=== PATIENT | female | born 1975 | race Caucasian/White ===

== ENCOUNTER 2020-04-30 23:42 | Emergency (ER) | payer OTHER, SELFPAY ==
[2020-04-30 23:47] VITALS: BP 185/99; PULSE 114; RESP 22; TEMP 36.6; O2SAT 99
--- NOTE | 2020-04-30 23:57 | DI.CT.S_ITS ---
PROCEDURE: CT CERVICAL SPINE WO CON INDICATIONS: Fall/injury TECHNIQUE: Noncontrast 3 mm thick sections acquired from the skull base to the T4 level. Sagittal and coronal reformats were then constructed. For radiation dose reduction, the following was used: automated exposure control, adjustment of mA and/or kV according to patient size. COMPARISON: None. FINDINGS: Image quality: Limited by patient motion artifact. Spine degenerative disc disease and facet arthropathy. Bones: No fractures or dislocations. Visualized superior ribs are intact. Soft tissues: Prevertebral soft tissues are normal in thickness. No paravertebral hematomas. No apical pneumothoraces. Probable sebaceous cyst noted in left paramedian posterior left lower neck soft tissues. IMPRESSION: No fracture. No acute osseous lesion. If symptoms and/or clinical suspicion for pathology persists, evaluation with MRI may be helpful for further assessment. Dictated by: Saima Hull MD, PhD on 05/01/2020 at 7:35 Approved by: Saima Hull MD, PhD on 05/01/2020 at 7:38
--- NOTE | 2020-04-30 23:57 | DI.CT.S_ITS ---
PROCEDURE: CT HEAD/BRAIN WO CON INDICATIONS: Fall/injury TECHNIQUE: Noncontrast 4.5 mm thick angled axial sections acquired from the foramen magnum to the vertex, with coronal and sagittal reformats. For radiation dose reduction, the following was used: automated exposure control, adjustment of mA and/or kV according to patient size. COMPARISON: None. FINDINGS: Image quality: Excellent. CSF spaces: Basal cisterns are patent. No extra-axial fluid collections. Ventricles are normal in size and shape. Brain: No midline shift. No intracranial masses or hemorrhage. Ibrahim-white matter interface is normal. Skull and face: Calvarium is intact, without suspicious lesions. Mildly displaced bilateral nasal bone fractures. Sinuses: Visualized sinuses and mastoids are clear. IMPRESSION: No acute intracranial disease process. Dictated by: Saima Hull MD, PhD on 05/01/2020 at 7:23 Approved by: Saima Hull MD, PhD on 05/01/2020 at 7:25
--- NOTE | 2020-04-30 23:57 | DI.CT.S_ITS ---
PROCEDURE: CT FACIAL BONES WO CON INDICATIONS: Fall/injury TECHNIQUE: Noncontrast 2.5 mm thick axial images acquired from the mandible through the frontal sinuses, with coronal and sagittal reformatting. For radiation dose reduction, the following was used: automated exposure control, adjustment of mA and/or kV according to patient size. COMPARISON: None. FINDINGS: Image quality: Excellent. Bones and teeth: Orbital baxter are intact. Sinus baxter show no fracture or deformity. Mildly displaced bilateral nasal bone fractures. Nasal septum is intact. Visualized portions of the mandible demonstrate no fractures or subluxation. Zygomatic arches are intact. Pterygoid plates are intact. Visualized portions of the skull base and auditory canals are intact. Sinuses: Paranasal sinuses are aerated, without fluid levels, mucosal thickening, or mucoceles. Mastoid air cells are aerated. Soft tissues: No edema, masses, or fluid collections. No enlarged lymph nodes. No soft tissue lacerations or debris. Vascular: Visualized vascular structures appear normal in the absence of contrast. Bony vascular foramina and canals are intact. IMPRESSION: Bilateral nasal bone fractures. Dictated by: Saima Hull MD, PhD on 05/01/2020 at 7:34 Approved by: Saima Hull MD, PhD on 05/01/2020 at 7:35
--- NOTE | 2020-04-30 23:58 | ED_ITS ---
HPI - Wound/Laceration General Chief Complaint: Wound/Laceration Stated Complaint: fall/laceration to left eye/nose Time Seen by Provider: 04/30/20 23:52 Source: patient Mode of arrival: Ambulatory History of Present Illness HPI narrative: Patient here for ground level fall. Patient has been drinking alcohol today. Watching a football game. She walked outside and stumbled and fill onto the sidewalk. Hitting her face. Denies denies any other injuries. No neck pain no limb pain no back pain no chest pain no pelvis pain. No loss of consciousness. No nausea or vomiting. No vision changes. Denies does not want a test. Has abrasion to the nose and left periorbital area. Related Data Home Medications Medication Instructions Recorded Confirmed ibuprofen 200 mg tablet 400 mg PO BID PRN 10/21/18 11/23/18 Immunity Echinacea 3 tab PO .QDAY-TID PRN 11/23/18 11/23/18 Previous Rx's Medication Instructions Recorded etonogestrel 0.12 mg-ethinyl 1 vaginalrin VAG Q3W #3 each 04/13/20 estradiol 0.015 mg/24 hr vaginal ring Allergies Allergy/AdvReac Type Severity Reaction Status Date / Time amoxicillin [AMOXICILLIN] Allergy Severe Immediate Verified 11/23/18 13:58 rash all over my body clavulanic acid Allergy Severe Immediate Verified 11/23/18 13:58 [CLAVULANIC ACID] rash all over my body. Review of Systems Review of Systems Narrative: GENERAL: Denies chills, fatigue, malaise, fever, sweats. HEENT: Denies sinus pain, ear pain, sore throat, difficulty swallowing, dizziness. RESPIRATORY: Denies dyspnea, cough, wheezing, hemoptysis, sputum. CARDIOVASCULAR: Denies chest pain, palpitations, orthopnea, edema, GASTROINTESTINAL: Denies nausea, vomiting, abdominal pain, diarrhea, constipation, melena. : Denies dysuria, frequency, incontinence, hematuria, urinary retention. MUSCULOSKELETAL: denies weakness, joint pain, or bony pain SKIN: Denies rash, skin lesions, has abrasions to the face NEUROLOGIC: Denies weakness, headache, numbness, change in speech, confusion, seizures, incoordination. PSYCHIATRIC: No concerning psychosocial issues. 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 Well-nourished, well- developed patient, in no distress, not toxic, patient wearing shorts HEAD: Nontender scalp. There is periorbital edema/abrasion left side. There is abrasion edema to the bridge of the nose as well. Bleeding controlled. Normocephalic. EYES: Pupils equal round and reactive. Extraocular motions intact. No scleral icterus. No injection or drainage. No eye muscle entrapment ENT: No intranasal bleeding at this time. No septal hematomas, purulent drainage. Throat without erythema, tonsillar hypertrophy or exudate. Airway patent. No malocclusion or trismus. NECK: Trachea midline. Non tender CARDIOVASCULAR: Regular rate and rhythm without murmurs, gallops, or rubs. RESPIRATORY: Clear to auscultation. Breath sounds equal bilaterally. No wheezes, rales, or rhonchi. GASTROINTESTINAL: Abdomen soft, non-tender, nondistended. EXTREMITIES: No edema or joint tenderness. BACK: Nontender without deformity or crepitance. No flank tenderness. NEURO: AOx4. Clear speech no facial droop light touch intact to bilateral face and hands with strong equal first line production supervisor. SKIN: No rash or erythema of visible areas PSYCH: Not anxious, is cooperative Initial Vital Signs Initial Vital Signs: Vital Signs Temperature 97.9 F 04/30/20 23:47 Pulse Rate 114 H 04/30/20 23:47 Respiratory Rate 22 04/30/20 23:47 Blood Pressure 185/99 H 04/30/20 23:47 Pulse Oximetry 99 04/30/20 23:47 Course Orders Ordered: ED Orders 04/30/20 23:57 CT cervical spine wo con Stat CT facial bones wo con Stat CT head/brain wo con Stat Discontinued Medications Diphtheria/Tetanus/Acell Pertussis (Adacel) 0.5 ml IM .ONCE ONE Stop: 04/30/20 23:58 Last Admin: 05/01/20 00:31 Dose: 0.5 ml Documented by: LALO Reevaluation(s) Reevaluation #1: Bleeding controlled at time of discharge. Friend here to drive patient. Reviewed results with patient and friend. They would like to be discharged home. Follow-up given to patient Time: 01:17 Vital Signs Vital signs: Vital Signs - 8 hr 04/30/20 23:47 05/01/20 01:21 Temperature 97.9 F Pulse Rate 114 H 160 H Respiratory Rate 22 18 Blood Pressure 185/99 H 177/79 H Pulse Oximetry 99 98 MDM - Wound/Laceration Differential Diagnosis Differential diagnosis: Likely other (Facial contusion/abrasion/facial fracture) Imaging Data CT scan - head: Radiologist's Impression: No acute intracranial process CT - cervical spine: Radiologist's Impression: No fractures CT facial bones: Radiologist's Impression: Comminuted bilateral nasal bone fractures MDM Narrative Medical decision making narrative: Appropriate for discharge home. Patient mentating appropriately. Awake alert oriented x4. No altered mental status appears well and cooperative Discharge Plan Departure Patient Disposition: Home Clinical Impression: Abrasion Closed fracture nasal bone Qualifiers: Encounter type: initial encounter Qualified Code(s): S02.2XXA - Fracture of nasal bones, initial encounter for closed fracture Discharge Date/Time: 05/01/20 01:26 Instructions: DI for Nose Fracture, DI for Abrasion Activity Restrictions/Additional Instructions: No driving tonight. Call Dr. Hernandez office in the morning for office recheck this week. Clean skin twice a day warm soap and water and then apply topical antibiotic. Return if worse. Return if any questions or concerns Prescriptions: No Action ibuprofen 200 mg tablet 400 mg PO BID PRNRF: 0 Immunity Echinacea 3 tab PO .QDAY-TID PRNRF: 0 NuvaRing 0.12-0.015 mg/24 hr ring 1 vaginalrin VAG Q3W Qty: 3 RF: 1 Referrals: Minh Hernandez MD [Physician] -
--- NOTE | 2020-05-01 00:06 | PC.NURSE ---
Abrasions cleaned with CHG
[2020-05-01] MEDS: TET,DIPH,PERTUSS(ACELL),VAC/PF 0.5 ML SYRINGE IM (00:31)
[2020-05-01 01:21] VITALS: BP 177/79; PULSE 160; RESP 18; O2SAT 98
== END 2020-05-01 01:26 | disposition home or self-care (01) ==
PROVIDERS: Emergency Provider Emergency Medicine
DX: S02.2XXA Fracture of nasal bones, initial encounter for closed fracture (principal); W19.XXXA Unspecified fall, initial encounter; Z23 Encounter for immunization
CPT/HCPCS: 70450; 70486; 72125; 90471; 99284; 90715

== ENCOUNTER 2022-06-11 11:29 | Emergency (ER) | payer OTHER, SELFPAY ==
[2022-06-11] VITALS (20 sets, daily range): BP systolic 132–184; BP diastolic 70–101; PULSE 87–111; RESP 13–23; TEMP 37.3–38.1; O2SAT 94–100; BMI 38.5
[2022-06-11] MEDS: SODIUM CHLORIDE 0.9% 1,000 ML 1000 ML IV (12:30)
[2022-06-11 12:38] LABS: Add Manual Diff / Slide Review NO; Basophils Absolute Auto 0 /uL (0-100); Basophils Percent Auto 0.1 % (0-2); Eosinophils Absolute Auto 0 /uL (0-450); Eosinophils Percent Auto 0.1 % (2-4); Hematocrit 37.5 % (36-46); Hemoglobin 12.3 g/dL (12.0-16.0); Lymphocytes Absolute Auto 800 /uL (1100-4500); Lymphocytes Percent Auto 4.7 % (25-40); Mean Corpuscular HGB Conc 32.9 % (30-36); Mean Corpuscular Hemoglobin 29.3 PG (26-34); Mean Corpuscular Volume 89.1 fL (80-100); Monocytes Absolute Auto 400 /uL (0-900); Monocytes Percent Auto 2.6 % (3-14); Neutrophils Absolute Auto 14800 /uL (1500-7000); Neutrophils Percent Auto 92.5 % (50-75); Platelet Count 178 X10^3/uL (150-400); Red Blood Cell Count 4.21 X10^6/uL (4.0-5.2)
[2022-06-11 12:49] LABS: Alanine Aminotransferase 21 IU/L (<35); Albumin 3.8 g/dL (3.5-5.0); Albumin Globulin Ratio 1.2 (1.0-2.8); Alkaline Phosphatase 63 U/L (38-126); Aspartate Aminotransferase 26 IU/L (14-36); BUN Creatinine Ratio 13.3 (6-22); Bilirubin Total 0.8 mg/dL (0.2-1.3); Blood Urea Nitrogen 10 mg/dL (7-17); Calcium 8.2 mg/dL (8.4-10.2); Carbon Dioxide 22 mmol/L (22-32); Chloride 99 mmol/L (98-107); Estimated Glomerular Filt Rate > 60 mL/min (>60); Globulin 3.3 g/dL (1.7-4.1); Glucose 115 mg/dL (70-100); HEMOLYSIS 32 (0-50); Lactate (Lactic Acid) 1.3 mmol/L (0.7-2.1); Lipase 76 U/L (23-300); Potassium 3.4 mmol/L (3.4-5.1); Sodium 130 mmol/L (137-145); Total Protein 7.1 g/dL (6.3-8.2)
[2022-06-11 13:05] LABS: Procalcitonin 0.16 ng/mL (<0.5)
[2022-06-11] MEDS: SODIUM CHLORIDE 0.9% 1360.78 ML IV (13:21)
[2022-06-11] MEDS: CEFEPIME 2 GM in SODIUM CHLORIDE 0.9% 100 ML IV (13:32)
--- NOTE | 2022-06-11 13:59 | ED_ITS ---
HPI - Skin/Abscess/Foreign Bdy General Chief complaint: Skin/Abscess/Foreign Body Stated complaint: Cellulitis rt calf last night Time Seen by Provider: 06/11/22 12:04 Source: patient Mode of arrival: Ambulatory Limitations: no limitations History of Present Illness HPI narrative: 47-year-old female with past medical history venous stasis presents to the ED with 2 days of right lower leg redness, swelling, pain. Patient states that she has had a ulcerated wound on the right lower leg for about 6 weeks now, however as of yesterday evening, she noticed that her right lower leg had suddenly developed a enlarging area of redness, pain. Patient denies any discharge. Patient also endorses fevers, chills, T-max 102.9?. Patient denies chest pain, shortness of breath, nausea, vomiting, abdominal pain, dysuria, lightheadedness, dizziness, syncope. Related Data Home Medications Medication Instructions Recorded Confirmed ibuprofen 200 mg tablet 400 mg PO BID PRN 10/21/18 10/10/20 Immunity Echinacea 3 tab PO .QDAY-TID PRN 11/23/18 10/10/20 Previous Rx's Medication Instructions Recorded etonogestrel 0.12 mg-ethinyl 1 vag ring vaginal Q3W #3 ea 09/06/21 estradiol 0.015 mg/24 hr vaginal ring (NuvaRing) cefdinir 300 mg capsule 300 mg PO BID 10 days #20 caps 06/11/22 doxycycline hyclate 100 mg capsule 100 mg PO BID 10 days #20 caps 06/11/22 fluconazole 150 mg tablet 150 mg PO Q3D 2 doses #2 tabs 06/11/22 (Diflucan) Allergies Allergy/AdvReac Type Severity Reaction Status Date / Time amoxicillin [AMOXICILLIN] Allergy Severe Immediate Verified 06/11/22 11:36 rash all over my body clavulanic acid Allergy Severe Immediate Verified 06/11/22 11:36 [CLAVULANIC ACID] rash all over my body. Review of Systems Review of Systems ROS Unobtainable: All systems reviewed & are unremarkable except as noted in HPI and below Constitutional Constitutional: Reports chills, Denies fatigue, Reports fever(s), Denies frequent falls, Denies lethargy and Denies weakness Eyes Eyes: Denies change in vision, Denies eye discharge, Denies irritation and Denies loss of vision ENT Ears, Nose, Mouth, and Throat: Denies change in voice, Denies dizziness, Denies neck pain, Denies sore throat and Denies throat swelling Cardiovascular Cardiovascular: Denies chest pain, Denies irregular heart rhythm, Denies lightheadedness, Denies palpitations, Denies dyspnea, Denies dyspnea on exertion and Denies orthopnea Respiratory Respiratory: Denies cough, Denies dyspnea, Denies dyspnea on exertion and Denies wheezing Gastrointestinal Gastrointestinal: Denies abdominal pain, Denies change in bowel habits, Denies diarrhea, Denies nausea and Denies vomiting Genitourinary Genitourinary: Denies hematuria, Denies flank pain, Denies urinary incontinence and Denies urinary urgency Musculoskeletal Musculoskeletal: Denies back pain, Denies muscle weakness, Denies neck pain, Denies numbness and Denies tingling Integumentary/Breasts Skin/Breast: Denies pruritus, Reports erythema, Denies rash and Reports wounds Comments: Wound with redness, pain, swelling on the right lower leg Neurologic Neurologic: Denies behavioral changes, Denies confusion, Denies dizziness, Denies frequent falls, Denies loss of vision, Denies numbness, Denies tingling and Denies weakness Psychiatric Psychiatric: Denies anxiety, Denies behavioral changes, Denies confusion, Denies depression, Denies homicidal ideation and Denies suicidal ideation Endocrine Endocrine: Denies fatigue, Denies flushing and Denies palpitations Hematologic/Lymphatic Hematologic/Lymphatic: Denies easy bruising Allergic/Immunologic Allergic/Immunologic: Denies urticaria, Denies throat swelling and Denies wheezing Patient History Medical History (Updated 06/11/22 @ 17:42 by Laura White PA-C) Cellulitis (~2010) Surgical History (Updated 06/11/22 @ 17:39 by Luis Leavitt DO) Status post phlebectomy Family History (Updated 06/11/22 @ 17:40 by Luis Leavitt DO) Father Diabetes mellitus Mother Diabetes mellitus Social History Smoking Status: Current every day smoker Tobacco: How many years used: 22 quit status: not considering quitting 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[employer]) alcohol intake: current (Beer a couple times a week) substance use type: does not use Smoking Status: Current every day smoker alcohol intake frequency: a few times a week Substance Use Type: does not use Exam Narrative Exam Narrative: Const General:?cooperative, healthy appearing and comfortable [facility] Head:?normal to inspection Ears:?hearing grossly normal bilaterally Nose:?external nose normal Face and sinus:?normal facial exam and sinuses nontender Mouth:?oral mucosae normal Throat:?posterior oropharynx normal Eyes General:?appearance normal, both eyes and all related structures Neck Neck:?normal visual inspection and no lymphadenopathy noted Resp Effort & Inspection:?normal respiratory effort Auscultation:?clear to auscultation bilaterally Cardio Rate:?regular rate Rhythm:?regular rhythm Integumentary 1 cm circular ulcerated wound on right lower leg with surrounding erythema extending from [id number] to the ankle. Compartments are soft, however skin feels tense. Pulses intact. Tender to palpation. No discharge noted on exam. Full range of motion. Patient is neurovascularly intact. Neuro General:?patient alert, patient awake and patient oriented x3 Initial Vital Signs Initial Vital Signs: Vital Signs Temperature 100.1 F H 06/11/22 11:35 Pulse Rate 111 H 06/11/22 11:35 Respiratory Rate 16 06/11/22 11:35 Blood Pressure 184/94 H 06/11/22 11:35 Pulse Oximetry 98 06/11/22 11:35 Oxygen Delivery Method 06/11/22 11:35 Course Orders Ordered: Discontinued Medications Acetaminophen (Acetaminophen 325 Mg Tablet) 975 mg PO NOW ONE Stop: 06/11/22 16:44 Last Admin: 06/11/22 16:57 Dose: 975 mg Documented By: AMALIA Sodium Chloride (Normal Saline 0.9%) 1,000 mls @ 1,000 mls/hr IV BOLUS ONE Stop: 06/11/22 12:39 Last Infusion: 06/11/22 16:40 Dose: 0 mls/hr Documented By: Admin: 06/11/22 12:30 Dose: 1,000 mls/hr Documented By: AMALIA Sodium Chloride (Normal Saline 0.9%) 4,082.34 mls @ 1,360.78 mls/hr 30 ml/kg infuse over 3 hr (4082.34 ml) IV NOW ONE Stop: 06/11/22 15:58 Last Infusion: 06/11/22 17:45 Dose: 0 mls/hr Documented By: Admin: 06/11/22 13:21 Dose: 1,360.78 mls/hr Documented By: AMALIA Vancomycin HCl (Vancomycin) 1,000 mg in 200 mls @ 200 mls/hr IV NOW ONE Stop: 06/11/22 13:58 Last Infusion: 06/11/22 16:59 Dose: 0 mls/hr Documented By: Admin: 06/11/22 14:54 Dose: 200 mls/hr Documented By: AMALIA(2) Cefepime HCl 2 gm/ Sodium (Chloride) 100 mls @ 200 mls/hr IV NOW ONE Stop: 06/11/22 13:06 Last Infusion: 06/11/22 14:51 Dose: 0 mls/hr Documented By: AMALIA(2) Admin: 06/11/22 13:32 Dose: 200 mls/hr Documented By: AMALIA Vital Signs Vital signs: Vital Signs - 8 hr 06/11/22 11:35 06/11/22 11:51 06/11/22 11:53 Temperature 100.1 F H Pulse Rate 111 H 102 H 102 H Respiratory Rate 16 16 14 Blood Pressure 184/94 H Pulse Oximetry 98 98 98 Oxygen Delivery Method Room Air 06/11/22 11:53 06/11/22 12:00 06/11/22 12:18 Temperature Pulse Rate 102 H Respiratory Rate 17 Blood Pressure 161/76 H 150/70 H Pulse Oximetry 97 Oxygen Delivery Method 06/11/22 12:18 06/11/22 12:30 06/11/22 12:30 Temperature Pulse Rate 100 H 97 H Respiratory Rate 13 16 Blood Pressure 150/70 H Pulse Oximetry 97 97 Oxygen Delivery Method 06/11/22 13:00 06/11/22 13:00 Temperature 99.1 F Pulse Rate 93 H Respiratory Rate 14 Blood Pressure 152/75 H Pulse Oximetry 96 Oxygen Delivery Method MDM - Skin/Abscess/Foreign Bdy Lab Data Result diagrams: 06/11/22 12:11 06/11/22 12:11 Labs: Lab Results 06/11/22 06/11/22 06/11/22 Range/Units 12:11 12:11 12:11 WBC 16.0 H (4.5-11.0) X10^3/uL RBC 4.21 (4.0-5.2) X10^6/uL Hgb 12.3 (12.0-16.0) g/dL Hct 37.5 (36-46) % MCV 89.1 (80-100) fL MCH 29.3 (26-34) PG MCHC 32.9 (30-36) % RDW 13.0 (11.6-14.8) % Plt Count 178 (150-400) X10^3/uL Neut % (Auto) 92.5 H (50-75) % Lymph % (Auto) 4.7 L (25-40) % [place] % (Auto) 2.6 L (3-14) % Eos % (Auto) 0.1 L (2-4) % Baso % (Auto) 0.1 (0-2) % Neut # (Auto) 56971 H (8872-9069) /uL Lymph # (Auto) 800 L (9356-6458) /uL [place] # (Auto) 400 (0-900) /uL Eos # (Auto) 0 (0-450) /uL Baso # (Auto) 0 (0-100) /uL Sodium 130 L (137-145) mmol/L Potassium 3.4 (3.4-5.1) mmol/L Chloride 99 (98-107) mmol/L Carbon Dioxide 22 (22-32) mmol/L BUN 10 (7-17) mg/dL Creatinine 0.75 (0.52-1.04) mg/dL Estimated GFR > 60 (>60) mL/min BUN/Creatinine Ratio 13.3 (6-22) Glucose 115 H (70-100) mg/dL Lactate 1.3 (0.7-2.1) mmol/L Calcium 8.2 L (8.4-10.2) mg/dL Total Bilirubin 0.8 (0.2-1.3) mg/dL AST 26 (14-36) IU/L ALT 21 (<35) IU/L Alkaline Phosphatase 63 (38-126) U/L Total Protein 7.1 (6.3-8.2) g/dL Albumin 3.8 (3.5-5.0) g/dL Globulin 3.3 (1.7-4.1) g/dL Albumin/Globulin Ratio 1.2 (1.0-2.8) Lipase 76 (23-300) U/L Procalcitonin 0.16 (<0.5) ng/mL Urine RBC (0-5/HPF) Urine WBC (0-5/HPF) Ur Squamous Epith Cells (0-5/HPF) Urine Bacteria (None) Ur Culture Indicated? 06/11/22 Range/Units 16:09 WBC (4.5-11.0) X10^3/uL RBC (4.0-5.2) X10^6/uL Hgb (12.0-16.0) g/dL Hct (36-46) % MCV (80-100) fL MCH (26-34) PG MCHC (30-36) % RDW (11.6-14.8) % Plt Count (150-400) X10^3/uL Neut % (Auto) (50-75) % Lymph % (Auto) (25-40) % [place] % (Auto) (3-14) % Eos % (Auto) (2-4) % Baso % (Auto) (0-2) % Neut # (Auto) (3441-3939) /uL Lymph # (Auto) (3665-9916) /uL [place] # (Auto) (0-900) /uL Eos # (Auto) (0-450) /uL Baso # (Auto) (0-100) /uL Sodium (137-145) mmol/L Potassium (3.4-5.1) mmol/L Chloride (98-107) mmol/L Carbon Dioxide (22-32) mmol/L BUN (7-17) mg/dL Creatinine (0.52-1.04) mg/dL Estimated GFR (>60) mL/min BUN/Creatinine Ratio (6-22) Glucose (70-100) mg/dL Lactate (0.7-2.1) mmol/L Calcium (8.4-10.2) mg/dL Total Bilirubin (0.2-1.3) mg/dL AST (14-36) IU/L ALT (<35) IU/L Alkaline Phosphatase (38-126) U/L Total Protein (6.3-8.2) g/dL Albumin (3.5-5.0) g/dL Globulin (1.7-4.1) g/dL Albumin/Globulin Ratio (1.0-2.8) Lipase (23-300) U/L Procalcitonin (<0.5) ng/mL Urine RBC 0-1/hpf (0-5/HPF) Urine WBC 5-10/hpf H (0-5/HPF) Ur Squamous Epith Cells 1-5 /hpf (0-5/HPF) Urine Bacteria Few (2-10) H (None) Ur Culture Indicated? Specimen cultured Point of Care Testing Test Results Negative Urine Dip Bedside Urine Glucose Negative Bedside Urine Bilirubin - Negative Bedside Urine Ketone - Negative Urine Specific [place] 1.010 Bedside Urine Occult Blood - Negative Bedside Urine pH 6.0 Bedside Urine Protein - Negative Bedside Urine Urobilinogen - Negative Bedside Urine Nitrite - Negative Bedside Urine Leukocytes + 70 Esterase Imaging Data US - DVT: Radiologist's Impression: PROCEDURE:? US PERIPH VENOUS LOW EXTREM RT ? INDICATIONS:? RLE swelling, redness ? TECHNIQUE:? Real-time imaging, as well as color and pulse Doppler interrogation, were performed of the lower extremity deep veins from the inguinal ligament to the popliteal fossa.? ? COMPARISON:? None. ? FINDINGS:? The common femoral, femoral and popliteal veins are normally compressible, and free of intraluminal thrombus.? Color and pulse Doppler demonstrate normal phasic intraluminal flow.? There is normal augmentation response to distal compression maneuver. ? ? Enlarged right groin lymph nodes which could be reactive or neoplastic. ? ? IMPRESSION:? ? No evidence of deep vein thrombosis involving the right lower extremity. ? Right groin lymphadenopathy which could be reactive or neoplastic. ? ? Dictated by: Saima Hull MD, PhD on 06/11/2022 at 15:43 ? ? Approved by: Saima Hull MD, PhD on 06/11/2022 at 15:44 ? Lower extremity CT: Radiologist's Impression: PROCEDURE:? CT LE RT W CON ? INDICATIONS:? RLE swellimg, redness, ulcer ? TECHNIQUE:? After the administration of intravenous contrast, 3 mm axial sections acquired of the right lower leg , with coronal and sagittal reformats. ? ? COMPARISON:? None. ? FINDINGS:? Image quality:? Excellent.? ? Bones:? Mild tricompartmental osteoarthritis in right knee is seen with joint space narrowing, subchondral sclerosis and small marginal osteophyte formation.? Mild osteoarthritic changes also seen throughout right ankle and foot with joint space narrowing and subchondral sclerosis.? No fracture or dislocation.? No suspicious intraosseous lesion.? No cortical erosion or periosteal reaction is seen. ? Soft tissues:? There is significant subcutaneous soft tissue edema and swelling with overlying skin thickening throughout mid to distal right lower leg.? No discrete peripherally enhancing fluid collection is seen to suggest abscess collection.? No area of abnormal intramuscular enhancement.? No evidence of muscle or tendon rupture. ? IMPRESSION:? 1.? Extensive cellulitis in mid to distal lower leg.? No discrete drainable abscess collection.? No evidence of intramuscular abscess collection or enhancing mass. 2. Osteoarthritic changes in visualized right lower extremity.? No fracture or dislocation.? No evidence of osteomyelitis. ? ? Dictated by: Merritt Bruce M.D. on 06/11/2022 at 17:10 ? ? Approved by: Merritt Bruce M.D. on 06/11/2022 at 17:15 ? MDM Narrative Medical decision making narrative: 47-year-old female with past medical history venous stasis presents to the ED with 2 days of right lower leg redness, swelling, pain. Will obtain labs, lactate, UA, blood cultures, wound culture. Patient declines pain medication, states she is comfortable as long as she keeps her leg rested on the bed. Will reassess. WBC elevated to 16. Heart rate elevated between 90s to 110s. Patient is sirs positive with the source of infection. Sepsis protocol initiated. Sepsis fluids and antibiotics started. Will consult hospitalist, admit patient for continued antibiotics. Hospitalist consulted. Obtain Ultrasound right lower extremity to rule out DVT, CT right lower extremity to rule out abscess or osteomyelitis. Ultrasound and CT were without acute findings. UA positive for UTI. Joint decision between hospitalist, patient, author of this document to discharge patient home with outpatient follow-up and p.o. antibiotics. ED return precautions were discussed with patient. Patient verbalized understanding. Discharge Plan Departure Patient Disposition: Home Clinical Impression: Cellulitis Instructions: DI for Cellulitis -- Adult Activity Restrictions/Additional Instructions: You were evaluated in the ED today for a right lower leg infection. You were diagnosed with cellulitis, which is a skin infection of the right lower leg. Your white count was also elevated which is consistent with an infection. You were given some IV antibiotics in the ED. your ultrasound did not show any blood clots and your CT of the leg did not show any abscesses. You are being discharged home with to oral antibiotics, namely doxycycline and cefdinir. Please complete the full course of antibiotics as prescribed. We have marked the outline of the redness on your leg today. Please return to the ED if your symptoms worsen, the redness continues to spread after tomorrow. Prescriptions: New doxycycline hyclate 100 mg capsule 100 mg PO BID 10 Days Qty: 20 0RF cefdinir 300 mg capsule 300 mg PO BID 10 Days Qty: 20 0RF fluconazole [Diflucan] 150 mg tablet 150 mg PO Q3D Qty: 2 0RF No Action ibuprofen 200 mg tablet 400 mg PO BID PRN Immunity Echinacea 3 tab PO .QDAY-TID PRN NuvaRing 0.12-0.015 mg/24 hr ring 1 vag ring VAG Q3W Qty: 3 3RF Referrals: Daniel Liang ARNP [Primary Care Provider] - Stand Alone Forms: Work Release Note Visit Report Forms: Patient Portal/API
[2022-06-11] MEDS: VANCOMYCIN 1,000 MG/200 ML PIGGYBACK 200 MG IV (14:54)
--- NOTE | 2022-06-11 15:03 | DI.US.S_ITS ---
PROCEDURE: US PERIPH VENOUS LOW EXTREM RT INDICATIONS: RLE swelling, redness TECHNIQUE: Real-time imaging, as well as color and pulse Doppler interrogation, were performed of the lower extremity deep veins from the inguinal ligament to the popliteal fossa. COMPARISON: None. FINDINGS: The common femoral, femoral and popliteal veins are normally compressible, and free of intraluminal thrombus. Color and pulse Doppler demonstrate normal phasic intraluminal flow. There is normal augmentation response to distal compression maneuver. Enlarged right groin lymph nodes which could be reactive or neoplastic. IMPRESSION: No evidence of deep vein thrombosis involving the right lower extremity. Right groin lymphadenopathy which could be reactive or neoplastic. Dictated by: Saima Hull MD, PhD on 06/11/2022 at 15:43 Approved by: Saima Hull MD, PhD on 06/11/2022 at 15:44
--- NOTE | 2022-06-11 15:03 | DI.CT.S_ITS ---
PROCEDURE: CT LE RT W CON INDICATIONS: RLE swellimg, redness, ulcer TECHNIQUE: After the administration of intravenous contrast, 3 mm axial sections acquired of the right lower leg , with coronal and sagittal reformats. COMPARISON: None. FINDINGS: Image quality: Excellent. Bones: Mild tricompartmental osteoarthritis in right knee is seen with joint space narrowing, subchondral sclerosis and small marginal osteophyte formation. Mild osteoarthritic changes also seen throughout right ankle and foot with joint space narrowing and subchondral sclerosis. No fracture or dislocation. No suspicious intraosseous lesion. No cortical erosion or periosteal reaction is seen. Soft tissues: There is significant subcutaneous soft tissue edema and swelling with overlying skin thickening throughout mid to distal right lower leg. No discrete peripherally enhancing fluid collection is seen to suggest abscess collection. No area of abnormal intramuscular enhancement. No evidence of muscle or tendon rupture. IMPRESSION: 1. Extensive cellulitis in mid to distal lower leg. No discrete drainable abscess collection. No evidence of intramuscular abscess collection or enhancing mass. 2. Osteoarthritic changes in visualized right lower extremity. No fracture or dislocation. No evidence of osteomyelitis. Dictated by: Merritt Bruce M.D. on 06/11/2022 at 17:10 Approved by: Merritt Bruce M.D. on 06/11/2022 at 17:15
[2022-06-11 16:55] LABS: Bacteria Urine Few (2-10); Culture Indicated Urine Specimen Cultured; Squamous Epithelial Cell Urine 1-5 /HPF (0-5/HPF); WBC Urine 5-10/HPF (0-5/HPF)
[2022-06-11 16:56] LABS: RBC Urine 0-1/HPF (0-5/HPF)
[2022-06-11] MEDS: ACETAMINOPHEN 325 MG TABLET 975 MG PO (16:57)
--- NOTE | 2022-06-11 17:33 | P.CONS_ITS ---
History of Present Illness Consult details Date Patient Seen: 06/11/22 Time Patient Seen: 17:33 Chief complaint: Cellulitis rt calf last night Reason for consult: Cellulitis, possible admit Requesting provider: Laura White Narrative: This is a 47 year old female with PMH of LE venous stasis with ulcerations who presents with worsening redness on her R leg over the past two days. She has prior episodes of reportedly venous ulcerations but has not seen providers for this chronically. She noticed a recurrence of another venous ulcer about 1-2 weeks ago, but this has been stable on her R leg and mildly improved. She came to the ER today with pain and redness on her lateral aspect of her june over the last few days which is new. She has not seen a provider previously for this. She reports subjective fever and chills, but no nausea, vomiting chest pain shortness of breath or palpitations. Her R leg is slightly swollen more than normal. She has not had any recent antibiotics. In the ER, she did have a low grade fever, mild WBC elevation at 16. She was given a dose of cefepime and vancomycin. UA was done which showed possible infection as well though she denies dysuria or urinary frequency. US of her RLE was negative for DVT. Recommended CT imaging to rule out abscess or possible osteomyelitis, though this was negative as well. Meds Home Medications and Allergies Home Medications Medication Instructions Recorded Confirmed Type ibuprofen 200 mg tablet 400 mg PO BID PRN 10/21/18 10/10/20 History Immunity Echinacea 3 tab PO .QDAY-TID PRN 11/23/18 10/10/20 History etonogestrel 0.12 mg-ethinyl 1 vag ring vaginal Q3W #3 ea 09/06/21 Rx estradiol 0.015 mg/24 hr vaginal ring (NuvaRing) cefdinir 300 mg capsule 300 mg PO BID 10 days #20 caps 06/11/22 Rx doxycycline hyclate 100 mg capsule 100 mg PO BID 10 days #20 caps 06/11/22 Rx fluconazole 150 mg tablet 150 mg PO Q3D 2 doses #2 tabs 06/11/22 Rx (Diflucan) Allergies Allergy/AdvReac Type Severity Reaction Status Date / Time amoxicillin [AMOXICILLIN] Allergy Severe Immediate Verified 06/11/22 11:36 rash all over my body clavulanic acid Allergy Severe Immediate Verified 06/11/22 11:36 [CLAVULANIC ACID] rash all over my body. Review of Systems Review of Systems Narrative: All other systems reviewed with the patient and are negative unless otherwise stated. Exam Vital Signs (past 8 hours): - 06/11/22 11:35 06/11/22 11:51 06/11/22 11:53 Temperature 100.1 F H Pulse Rate 111 H 102 H 102 H Respiratory Rate 16 16 14 Blood Pressure 184/94 H Pulse Oximetry 98 98 98 Oxygen Delivery Method Room Air 06/11/22 11:53 06/11/22 12:00 06/11/22 12:18 Temperature Pulse Rate 102 H Respiratory Rate 17 Blood Pressure 161/76 H 150/70 H Pulse Oximetry 97 Oxygen Delivery Method 06/11/22 12:18 06/11/22 12:30 06/11/22 12:30 Temperature Pulse Rate 100 H 97 H Respiratory Rate 13 16 Blood Pressure 150/70 H Pulse Oximetry 97 97 Oxygen Delivery Method 06/11/22 13:00 06/11/22 13:00 06/11/22 13:30 Temperature 99.1 F Pulse Rate 93 H Respiratory Rate 14 Blood Pressure 152/75 H 149/71 H Pulse Oximetry 96 Oxygen Delivery Method 06/11/22 13:30 06/11/22 14:00 06/11/22 14:00 Temperature Pulse Rate 90 91 H Respiratory Rate 13 13 Blood Pressure 163/78 H Pulse Oximetry 97 100 Oxygen Delivery Method 06/11/22 14:30 06/11/22 14:41 06/11/22 14:41 Temperature Pulse Rate 88 90 Respiratory Rate 17 15 Blood Pressure 176/82 H Pulse Oximetry 99 100 Oxygen Delivery Method 06/11/22 15:00 06/11/22 15:01 06/11/22 15:01 Temperature Pulse Rate 92 H 92 H Respiratory Rate 23 17 Blood Pressure 132/101 H Pulse Oximetry 100 100 Oxygen Delivery Method 06/11/22 15:30 06/11/22 15:31 06/11/22 15:31 Temperature Pulse Rate 89 87 Respiratory Rate 20 16 Blood Pressure 161/71 H Pulse Oximetry 100 100 Oxygen Delivery Method 06/11/22 16:21 06/11/22 16:57 06/11/22 16:30 Temperature 100.5 F H Pulse Rate 96 H 94 H Respiratory Rate 21 Blood Pressure Pulse Oximetry 94 97 Oxygen Delivery Method 06/11/22 17:00 Temperature Pulse Rate 94 H Respiratory Rate 19 Blood Pressure Pulse Oximetry 97 Oxygen Delivery Method Oxygen Delivery Method Room Air Narrative Exam Narrative: General:? Patient is well developed and well nourished, in no distress at this time. HEENT:? Normocephalic, atraumatic, extraocular muscles intact, oral pharynx is clear and mucous membranes are moist. Neck: supple and symmetric, trachea is midline, no cervical adenopathy. Negative for JVD Chest:? Normal AP diameter and contour without kyphoscoliosis, no tachypnea, equal chest rise bilaterally. Lungs:? CTA b/l no wheezing rhonchi or rales. Cardio:?RRR no m/r/g. Abdomen: S NT ND. No CVA tenderness. Musculoskeletal:? Muscle strength and tone are equal within normal limits, no deformity. Extremities: RLE with mild swelling, mild erythema and tenderness, small areas of more petechial in appearance on the lateral june but some smaller areas of macular appearing redness. Medially she has chronic appearing venous ulcerations that appear healed, without warmth, redness, or induration. Skin:? Pale,? Warm to touch,dry and intact except as noted above. Neuro:? Alert and orientated x3,? sensation to touch intact in all extremities, no gross deficits noted of cranial nerves. Psych:? Patient has a well-kept appearance, appropriate affect, mental status attitude thought context and judgment are appropriate for age. Objective Labs Result Diagrams: 06/11/22 12:11 06/11/22 12:11 Labs: Laboratory Results - last 24 hr 06/11/22 06/11/22 06/11/22 12:11 12:11 12:11 WBC 16.0 H RBC 4.21 Hgb 12.3 Hct 37.5 MCV 89.1 MCH 29.3 MCHC 32.9 RDW 13.0 Plt Count 178 Neut % (Auto) 92.5 H Lymph % (Auto) 4.7 L [place] % (Auto) 2.6 L Eos % (Auto) 0.1 L Baso % (Auto) 0.1 Neut # (Auto) 31127 H Lymph # (Auto) 800 L [place] # (Auto) 400 Eos # (Auto) 0 Baso # (Auto) 0 Sodium 130 L Potassium 3.4 Chloride 99 Carbon Dioxide 22 BUN 10 Creatinine 0.75 Estimated GFR > 60 BUN/Creatinine Ratio 13.3 Glucose 115 H Lactate 1.3 Calcium 8.2 L Total Bilirubin 0.8 AST 26 ALT 21 Alkaline Phosphatase 63 Total Protein 7.1 Albumin 3.8 Globulin 3.3 Albumin/Globulin Ratio 1.2 Lipase 76 Procalcitonin 0.16 Urine RBC Urine WBC Ur Squamous Epith Cells Urine Bacteria Ur Culture Indicated? 06/11/22 16:09 WBC RBC Hgb Hct MCV MCH MCHC RDW Plt Count Neut % (Auto) Lymph % (Auto) [place] % (Auto) Eos % (Auto) Baso % (Auto) Neut # (Auto) Lymph # (Auto) [place] # (Auto) Eos # (Auto) Baso # (Auto) Sodium Potassium Chloride Carbon Dioxide BUN Creatinine Estimated GFR BUN/Creatinine Ratio Glucose Lactate Calcium Total Bilirubin AST ALT Alkaline Phosphatase Total Protein Albumin Globulin Albumin/Globulin Ratio Lipase Procalcitonin Urine RBC 0-1/hpf Urine WBC 5-10/hpf H Ur Squamous Epith Cells 1-5 /hpf Urine Bacteria Few (2-10) H Ur Culture Indicated? 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 Medicine was asked to evaluate for possible admission. Discussed with patient given negative imaging for DVT and no abscess, and currently well appearance with controlled pain and no difficulty with ambulation that it is possible to discharge home with return precautions and it would also be reasonable to assess her response to IV antibiotics given low grade fever and leukocytosis. Patient elected for discharge home at this time from the ER. 1. RLE acute cellulitis in setting of chronic venous stasis with venous ulcerations. - She does meet SIRS criteria, but has no evidence of organ dysfunction at this time. - US was negative for DVT. CT RLE was performed to rule out abscess or evaluate for possible evidence of ostemyelitis, though this was negative as well. - Risks and benefits of admission or discharge home was discussed, patient elected for discharge home. Recommend oral cefdinir and doxycycline for 10 days for RLE cellulitis. Return precuations were provided to the patient including worsening fever, redness, and pain. - do not suspect her venous ulcerations are infected at this time - outpatient follow up with PCP for continuing care of venous ulcerations. 2. asymptomatic bacteuria - UA with 5-10 WBC, and was reflexed for culture. patient without current UTI symptoms, but antibiotics noted above would adequately treat any cystitis. 3. Obesity with BMI 38.5 4. Tobacco use Code: Full, surrogate is patient's mom Dispo: patient elects for discharge home from the ER after discussion of management options. I have utilized all available immediate resources to obtain, update, or review the patient's current medications. Time Spent With Patient Critical Care time: I spent a total of [] minutes of critical care time on this patient's care today; this time is exclusive of procedural time.
== END 2022-06-11 18:06 | disposition home or self-care (01) ==
PROVIDERS: Family Medicine Addiction Medicine; Emergency Provider Student in an Organized Health Care Education/Training Program; PCP Registered Nurse
DX: L03.115 Cellulitis of right lower limb (principal); R50.9 Fever, unspecified
CPT/HCPCS: 36415; 73701; 80053; 81003; 81015; 81025; 83605; 83690; 84145; 85025; 87040; 87070; 87075; 87077; 87086; 87147; 87186; 87205; 93005; 93971; 96365; 96366; 96367; 99284; J0692

== ENCOUNTER → 2023-02-25 10:59 | Outpatient (CLI) | payer OTHER, SELFPAY ==
[2023-02-25 11:56] LABS: Hematocrit 38.9 % (36-46); Mean Corpuscular HGB Conc 33.4 % (30-36); Mean Corpuscular Hemoglobin 29.6 PG (26-34); Mean Corpuscular Volume 88.6 fL (80-100); Platelet Count 223 X10^3/uL (150-400); Red Blood Cell Count 4.39 X10^6/uL (4.0-5.2); Red Cell Distribution Width 13.3 % (11.6-14.8); White Blood Cell Count 7.4 X10^3/uL (4.5-11.0)
[2023-02-25 12:13] LABS: Alanine Aminotransferase 19 IU/L (<35); Albumin 4.1 g/dL (3.5-5.0); Albumin Globulin Ratio 1.3 (1.0-2.8); Alkaline Phosphatase 70 U/L (38-126); Aspartate Aminotransferase 20 IU/L (14-36); BUN Creatinine Ratio 20.8 (6-22); Bilirubin Total 0.4 mg/dL (0.2-1.3); Blood Urea Nitrogen 16 mg/dL (7-17); Calcium 8.7 mg/dL (8.4-10.2); Carbon Dioxide 28 mmol/L (22-32); Chloride 104 mmol/L (98-107); Cholesterol 153 mg/dL (140-199); Estimated Glomerular Filt Rate > 60 mL/min (>60); Globulin 3.1 g/dL (1.7-4.1); Glucose 105 mg/dL (70-100); HDL Cholesterol 63 mg/dL (40-60); HEMOLYSIS < 15 (0-50); LDL Cholesterol Calculated 71 mg/dL (<100); Potassium 4.3 mmol/L (3.4-5.1); Sodium 138 mmol/L (137-145); Total Protein 7.2 g/dL (6.3-8.2); Triglycerides 94 mg/dL (35-150)
[2023-02-25 12:44] LABS: TSH w/ Reflex to FT4 2.45 uIU/mL (0.47-4.68)
== END ==
PROVIDERS: PCP Registered Nurse Diabetes Educator; Referring Provider Registered Nurse Diabetes Educator; Visit Provider Registered Nurse Diabetes Educator
DX: Z00.00 Encounter for general adult medical examination without abnormal findings (principal); R03.0 Elevated blood-pressure reading, without diagnosis of hypertension
CPT/HCPCS: 36415; 80053; 80061; 84443; 85027

== ENCOUNTER → 2023-06-11 12:41 | Outpatient (CLI) | payer OTHER, SELFPAY ==
[2023-06-11 13:30] LABS: BUN Creatinine Ratio 22.1 (6-22); Blood Urea Nitrogen 15 mg/dL (7-17); Carbon Dioxide 25 mmol/L (22-32); Chloride 104 mmol/L (98-107); Estimated Glomerular Filt Rate > 60 mL/min (>60); Glucose 100 mg/dL (70-100); HEMOLYSIS < 15 (0-50); Potassium 3.9 mmol/L (3.4-5.1); Sodium 136 mmol/L (137-145)
== END ==
PROVIDERS: PCP Registered Nurse Diabetes Educator; Referring Provider Registered Nurse Diabetes Educator; Visit Provider Registered Nurse Diabetes Educator
DX: I10 Essential (primary) hypertension (principal)
CPT/HCPCS: 36415; 80048

== ENCOUNTER → 2023-10-28 12:18 | Outpatient (CLI) | payer OTHER, SELFPAY ==
[2023-10-28 13:39] LABS: Blood Urea Nitrogen 20 mg/dL (7-17); Carbon Dioxide 27 mmol/L (22-32); Chloride 108 mmol/L (98-107); Estimated Glomerular Filt Rate > 60 mL/min (>60); Glucose 104 mg/dL (70-100); HEMOLYSIS < 15 (0-50); Potassium 3.6 mmol/L (3.4-5.1); Sodium 138 mmol/L (137-145)
== END ==
PROVIDERS: PCP Registered Nurse Diabetes Educator; Referring Provider Registered Nurse Diabetes Educator; Visit Provider Registered Nurse Diabetes Educator
DX: I10 Essential (primary) hypertension (principal)
CPT/HCPCS: 36415; 80048

== ENCOUNTER → 2024-10-05 12:17 | Outpatient (CLI) | payer OTHER, SELFPAY ==
[2024-10-05 12:58] LABS: Hematocrit 38.8 % (36-46); Hemoglobin 12.9 g/dL (12.0-16.0); Mean Corpuscular HGB Conc 33.3 % (30-36); Mean Corpuscular Hemoglobin 29.7 PG (26-34); Mean Corpuscular Volume 89.1 fL (80-100); Platelet Count 232 X10^3/uL (150-400); Red Blood Cell Count 4.35 X10^6/uL (4.0-5.2); Red Cell Distribution Width 14.1 % (11.6-14.8); White Blood Cell Count 8.1 X10^3/uL (4.5-11.0)
[2024-10-05 13:06] LABS: Hemoglobin A1C% w Est Avg Glu 5.1 % (4.0-6.0)
[2024-10-05 13:17] LABS: Alanine Aminotransferase 26 IU/L (<35); Albumin 3.9 g/dL (3.5-5.0); Albumin Globulin Ratio 1.4 (1.0-2.8); Alkaline Phosphatase 72 U/L (38-126); Aspartate Aminotransferase 25 IU/L (14-36); BUN Creatinine Ratio 29.7 (6-22); Bilirubin Total 0.6 mg/dL (0.2-1.3); Blood Urea Nitrogen 22 mg/dL (7-17); Calcium 8.9 mg/dL (8.4-10.2); Carbon Dioxide 24 mmol/L (22-32); Chloride 104 mmol/L (98-107); Cholesterol 168 mg/dL (140-199); Estimated Glomerular Filt Rate > 60 mL/min (>60); Globulin 2.7 g/dL (1.7-4.1); Glucose 98 mg/dL (70-100); HDL Cholesterol 65 mg/dL (40-60); HEMOLYSIS < 15 (0-50); LDL Cholesterol Calculated 77 mg/dL (<100); Sodium 138 mmol/L (137-145); Total Protein 6.6 g/dL (6.3-8.2); Triglycerides 132 mg/dL (35-150)
[2024-10-05 13:47] LABS: TSH w/ Reflex to FT4 1.11 uIU/mL (0.47-4.68)
== END ==
PROVIDERS: PCP Registered Nurse Diabetes Educator; Referring Provider Registered Nurse Diabetes Educator; Visit Provider Registered Nurse Diabetes Educator
DX: I10 Essential (primary) hypertension (principal); R73.01 Impaired fasting glucose
CPT/HCPCS: 36415; 80053; 80061; 83036; 84443; 85027